=== PATIENT | male | born 1940 | race Native Hawaiian/Other Pacific Islander ===

== ENCOUNTER 2018-09-02 09:50 | Outpatient (CLI) | payer MEDICARE | END 2018-09-02 09:51 | disposition home or self-care (01) | LOC: C.PAT 09:50 | DX: L72.3 Sebaceous cyst (principal) ==

== ENCOUNTER 2018-09-15 07:26 | Day surgery (SDC) | payer MEDICARE ==
[2018-09-15 08:13] VITALS: RESP 18
[2018-09-15 08:28] VITALS: BMI 31.8
[2018-09-15] MEDS ORDERED: Bupivacaine HCl 0.25% PF (10 ml) Inj ONE ×2 (09:27→09:28)
[2018-09-15] MEDS ORDERED: Lidocaine/Epinephrine 1% 1:100000 10 ML IJ ONE ×2 (09:28→09:29)
[2018-09-15] MEDS ORDERED: ceFAZolin 1 gm in NS 1 GM/100 ML BAG IVPB ONE ×2 (09:28→10:06)
--- NOTE | 2018-09-15 10:53 | PCM.SURG1 ---
Surgeon's Initial Post Op Note - Surgeon's Notes Surgeon: Dr. Miller Straightener And Aligner: Dr. Brito PGY3 Type of Anesthesia: Local Pre-Operative Diagnosis: Right back sebaceous cyst Operative Findings: see dictation Post-Operative Diagnosis: same Operation Performed: excision of back sebaceous cyst Specimen/Specimens Removed: back sebaceous cyst Estimated Blood Loss: EBL {In ML}: 5 Blood Products Given: N/A Drains Used: No Drains Post-Op Condition: Good Date of Surgery/Procedure: 09/15/18 Time of Surgery/Procedure: 10:53
[2018-09-15 11:22] VITALS: BP 119/86; PULSE 82; TEMP 98; O2SAT 100
--- NOTE | 2018-09-15 22:14 | OP ---
PROCEDURE DATE: 09/15/2018 PREOPERATIVE DIAGNOSIS: Large sebaceous cyst of the right upper back. POSTOPERATIVE DIAGNOSIS: Large sebaceous cyst of the right upper back. PROCEDURES DONE: 1. Excision of the sebaceous cyst of the right upper back, approximately 4 x 3 cm in size. 2. Excision of the skin and redundant subcutaneous tissue, approximately 4 x 2 cm in size. 3. Layered closure of the wound complex of 4 x 3 x 3 cm in size. SURGEON: Emmanuel Miller MD ANESTHESIA: Local anesthesia with monitoring. ESTIMATED BLOOD LOSS: Around 10 mL. DRAINS: None. PATHOLOGY: The large sebaceous cyst with surrounding skin as well as subcutaneous tissue was sent to the pathology. COMPLICATIONS: None. INTRAOPERATIVE FINDINGS: The patient had approximately 4 x 3 cm sebaceous cyst of the right upper back. DESCRIPTION OF PROCEDURE: On intraoperative steps, this 78-year-old male was diagnosed with a sebaceous cyst of the right upper back and the patient was consented for excision. Brought to the OR, placed in the left lateral position on the operating table, and after monitoring, the right upper back was prepped and draped in the usual sterile fashion. Local anesthesia was injected. Elliptical incision was made and upper and lower flaps were created. Medial and lateral dissection was done. The dissection was carried down deep up to the underlying fascia as well as the muscle and surrounding subcutaneous tissue as well as overlying skin was excised with the sebaceous cyst and it was sent off the table for the pathology. There was a proper hemostasis in each and every part of the procedure. Now, the wound was irrigated. The upper flap was sutured with underlying fascia and subcu. The lower flap was also sutured with underlying fascia and subcu and the deep subcu with 2-0 Vicryl, another layer of the subcu with 3-0 Vicryl and skin with 4-0 Monocryl. Dry sterile dressing was applied. The patient tolerated the procedure well. Count of instruments and gauze was correct. There was no apparent complication. The patient was sent to the postanesthesia care unit in stable condition. Emmanuel Miller MD [facility] # [id number]
== END 2018-09-15 11:26 | disposition home or self-care (01) ==
LOC: C.SDS 07:26 → C.OPSURG 07:26 → C.SDS 11:26
PROVIDERS: ATTEND Surgery Surgical Critical Care
DX: L72.0 Epidermal cyst (principal); E11.9 Type 2 diabetes mellitus without complications; E03.9 Hypothyroidism, unspecified; Z79.84 Long term (current) use of oral hypoglycemic drugs
CPT/HCPCS: 11406; 12032; 82948; 88305; J0690